=== PATIENT | female | born 1980 | race Caucasian/White ===

== ENCOUNTER 2022-07-27 18:44 | Emergency (ER) | payer BC ==
[2022-07-27] MEDS ORDERED: Tetracaine 0.5% PF 4 ML BOT ONE (19:11)
[2022-07-27] MEDS ORDERED: Fluorescein Opthalmic Strip ONE (19:12)
== END 2022-07-27 19:44 | disposition home or self-care (01) ==
LOC: CSHERS 18:44
DX: H57.89 Other specified disorders of eye and adnexa (principal)
CPT/HCPCS: 99283